=== PATIENT | male | born 1980 | race Caucasian/White ===

== ENCOUNTER 2017-09-15 18:47 | Emergency (ER) | payer SELFPAY ==
[~2017-09-15] VITALS: Ht 170.2 cm; Wt 69.0 kg
[~2017-09-15 18:47] MED LIST: HYDR25SU32 RC; OXYC-138 PO; TAMS0.4C32 PO; TRAM50TA2 PO
[2017-09-15 19:22] VITALS: BP 118/74
== END 2017-09-15 20:42 | disposition home or self-care (01) ==
LOC: ER 18:48
DX: M54.9 Dorsalgia, unspecified (principal); G89.29 Other chronic pain; Z79.899 Other long term (current) drug therapy
CPT/HCPCS: 99281

== ENCOUNTER 2018-08-15 00:54 | Emergency (ER) | payer OTHER ==
[~2018-08-15] VITALS: Ht 170.2 cm; Wt 72.7 kg
[2018-08-15 00:57] VITALS: BP 150/91
[2018-08-15] MEDS ORDERED: HYDROcodone/acetaminophen 5mg/325mg tablet PO STA (01:02)
[2018-08-15] MEDS ORDERED: TETanus/Pertussis (Acell)/Diphther VAC/PF (Tdap-Adult) 0.5ml syringe IMVAC ONE (01:15)
[2018-08-15] MEDS ORDERED: tetanus & diphtheria toxoid (Td) vaccine 0.5ml IMVAC ONE (01:15)
[2018-08-15] MEDS ORDERED: HYDR-3965 PO (02:30)
[2018-08-15] MEDS ORDERED: HYDROcodone/acetaminophen 10/325mg tab PO ONE (02:30)
[2018-08-15] MEDS ORDERED: SULF1TAB49 PO (02:30)
== END 2018-08-15 02:41 | disposition home or self-care (01) ==
LOC: ER 00:55
DX: S61.031A Puncture wound without foreign body of right thumb without damage to nail, initial encounter (principal); G89.29 Other chronic pain; Z56.0 Unemployment, unspecified; Z98.890 Other specified postprocedural states; Z79.899 Other long term (current) drug therapy; W22.8XXA Striking against or struck by other objects, initial encounter; Y93.89 Activity, other specified; Y92.89 Other specified places as the place of occurrence of the external cause; Y99.8 Other external cause status
CPT/HCPCS: 73130; 90471; 90715; 99283

== ENCOUNTER 2018-09-25 14:54 | Inpatient (IN) | payer MEDICAID, OTHER | END 2018-09-28 15:13 | disposition home or self-care (01) | LOC: ER 14:54 → SUR 3N 20:56 | DX: K35.80 Unspecified acute appendicitis (principal); K57.32 Diverticulitis of large intestine without perforation or abscess without bleeding ==

== ENCOUNTER 2019-08-02 20:24 | Emergency (ER) | payer MEDICAID, OTHER ==
[~2019-08-02] VITALS: Ht 170.2 cm; Wt 72.7 kg
[~2019-08-02 20:24] MED LIST changes: -HYDR25SU32 RC; +LACT1CAP26 PO; +NO HOME MEDS; -OXYC-138 PO; -TAMS0.4C32 PO; -TRAM50TA2 PO
[2019-08-02 20:27] VITALS: BP 130/70
[2019-08-02] MEDS ORDERED: dexamethasone 4mg tablet PO ONE (20:40)
[2019-08-02] MEDS ORDERED: albuterol 2.5 MG/3 ML nebule NEB ONE (20:40)
[2019-08-02] MEDS ORDERED: azithromycin 250mg tablet PO ONE (20:50)
[2019-08-02] MEDS ORDERED: ALBU6.7H9 INH (20:51)
[2019-08-02] MEDS ORDERED: AZIT-63 PO (20:51)
--- NOTE | 2019-08-02 20:55 | NUR ---
RT AT BEDSIDE.
== END 2019-08-02 21:03 | disposition home or self-care (01) ==
LOC: ER 20:25
DX: J40 Bronchitis, not specified as acute or chronic (principal); J18.9 Pneumonia, unspecified organism; G89.29 Other chronic pain; Z56.0 Unemployment, unspecified; Z79.899 Other long term (current) drug therapy
CPT/HCPCS: 71045; 94640; 94760; 99283

== ENCOUNTER 2020-05-02 09:36 | Emergency (ER) | payer OTHER ==
[~2020-05-02] VITALS: Ht 170.2 cm; Wt 68.2 kg
[~2020-05-02 09:36] MED LIST changes: +ALBU6.7H9 INH
[2020-05-02] MEDS ORDERED: NALO4SPR BOTHNARES (09:54)
--- NOTE | 2020-05-02 10:09 | NUR ---
Pt requesting to leave AMA. aware.
--- NOTE | 2020-05-02 10:51 | NUR ---
Pt's clothes were cut off by EMS. New sweatshirt obtained for the patient but will be given to the patient upon the arrival of the family member/friend for his ride home and safe discharge. Pt has been calm and cooperative but is anxious to leave the ED.
--- NOTE | 2020-05-02 11:01 | NUR ---
Pt continues to be anxious and wanting to leave the ED. Pt made a statement about being quick and if he wants to leave we will be unable to stop him. Security to the bedside as a standby.
[2020-05-02 11:21] VITALS: BP 132/64
== END 2020-05-02 11:13 | disposition home or self-care (01) ==
LOC: ER 09:36
DX: T50.7X1A Poisoning by analeptics and opioid receptor antagonists, accidental (unintentional), initial encounter (principal); G89.29 Other chronic pain; F12.90 Cannabis use, unspecified, uncomplicated; F15.90 Other stimulant use, unspecified, uncomplicated; F17.200 Nicotine dependence, unspecified, uncomplicated; Z98.890 Other specified postprocedural states; Z72.89 Other problems related to lifestyle; Z79.899 Other long term (current) drug therapy; Y92.89 Other specified places as the place of occurrence of the external cause
CPT/HCPCS: 93005; 99283

== ENCOUNTER 2020-08-19 01:25 | Emergency (ER) | payer MEDICAID ==
[~2020-08-19] VITALS: Ht 170.2 cm; Wt 60.0 kg
[~2020-08-19 01:25] MED LIST changes: +NALO4SPR BOTHNARES
[2020-08-19 01:26] VITALS: BP 128/85
--- NOTE | 2020-08-19 01:31 | NUR ---
Pt refuses any IV, lab draw, EKG or other treatment at this time. Pt waiting for Dr to discuss options.
[2020-08-19] MEDS ORDERED: NALO4SPR BOTHNARES (02:09)
== END 2020-08-19 02:34 | disposition left against medical advice (07) ==
LOC: ER 01:26
DX: T40.2X1A Poisoning by other opioids, accidental (unintentional), initial encounter (principal); R40.4 Transient alteration of awareness; F11.90 Opioid use, unspecified, uncomplicated; F12.90 Cannabis use, unspecified, uncomplicated; F15.90 Other stimulant use, unspecified, uncomplicated; G89.29 Other chronic pain; Z72.89 Other problems related to lifestyle; Z79.899 Other long term (current) drug therapy; Y92.89 Other specified places as the place of occurrence of the external cause
CPT/HCPCS: 99283

== ENCOUNTER 2020-12-25 14:09 | Emergency (ER) | payer MEDICAID ==
[~2020-12-25] VITALS: Ht 170.2 cm; Wt 67.4 kg
[2020-12-25] MEDS ORDERED: magnesium citrate 296ml oral solution PO ONE (19:40)
[2020-12-25] MEDS ORDERED: POLY119P2 PO (19:43)
[2020-12-25 19:55] VITALS: BP 122/75
== END 2020-12-25 19:57 | disposition home or self-care (01) ==
LOC: ER 14:09
DX: K59.00 Constipation, unspecified (principal); G89.29 Other chronic pain; F17.200 Nicotine dependence, unspecified, uncomplicated; F12.90 Cannabis use, unspecified, uncomplicated; F15.90 Other stimulant use, unspecified, uncomplicated; F11.90 Opioid use, unspecified, uncomplicated; Z98.890 Other specified postprocedural states; Z72.89 Other problems related to lifestyle; Z79.899 Other long term (current) drug therapy
CPT/HCPCS: 99282

== ENCOUNTER 2021-02-20 15:46 | Emergency (ER) | payer MEDICAID ==
[~2021-02-20] VITALS: Ht 170.2 cm; Wt 68.2 kg
[~2021-02-20 15:46] MED LIST changes: +POLY119P2 PO
[2021-02-20 16:33] VITALS: BP 124/75
== END 2021-02-20 17:00 | disposition home or self-care (01) ==
LOC: ER 15:48
DX: S01.112A Laceration without foreign body of left eyelid and periocular area, initial encounter (principal); G89.29 Other chronic pain; F12.90 Cannabis use, unspecified, uncomplicated; F15.90 Other stimulant use, unspecified, uncomplicated; F11.90 Opioid use, unspecified, uncomplicated; Z98.890 Other specified postprocedural states; Z72.89 Other problems related to lifestyle; Z79.899 Other long term (current) drug therapy; X58.XXXA Exposure to other specified factors, initial encounter; Y93.89 Activity, other specified; Y92.89 Other specified places as the place of occurrence of the external cause; Y99.8 Other external cause status
CPT/HCPCS: 99282

== ENCOUNTER 2021-08-21 23:52 | Emergency (ER) | payer MEDICAID ==
[~2021-08-21] VITALS: Ht 170.2 cm; Wt 64.0 kg
[2021-08-21 23:59] VITALS: BP 163/110
--- NOTE | 2021-08-22 00:09 | NUR ---
pt ambulated to restroom without assistance
== END 2021-08-22 00:27 | disposition home or self-care (01) ==
LOC: ER 23:53
DX: T40.411A Poisoning by fentanyl or fentanyl analogs, accidental (unintentional), initial encounter (principal); R00.0 Tachycardia, unspecified; G89.29 Other chronic pain; F12.90 Cannabis use, unspecified, uncomplicated; F15.90 Other stimulant use, unspecified, uncomplicated; F11.90 Opioid use, unspecified, uncomplicated; Z98.890 Other specified postprocedural states; Z72.89 Other problems related to lifestyle; Z79.899 Other long term (current) drug therapy; Y92.89 Other specified places as the place of occurrence of the external cause
CPT/HCPCS: 99283

== ENCOUNTER 2022-02-18 20:47 | Emergency (ER) | payer MEDICAID ==
[~2022-02-18] VITALS: Ht 170.2 cm; Wt 66.1 kg
[~2022-02-18 20:47] MED LIST changes: +ALBU6.7H14 INH; -ALBU6.7H9 INH
[2022-02-18 21:00] VITALS: BP 128/91
== END 2022-02-19 01:57 | disposition left against medical advice (07) ==
LOC: ER 20:47
DX: M79.601 Pain in right arm (principal); M79.602 Pain in left arm; Z53.21 Procedure and treatment not carried out due to patient leaving prior to being seen by health care provider; Z04.1 Encounter for examination and observation following transport accident
CPT/HCPCS: 73130

== ENCOUNTER 2022-11-15 11:54 | Emergency (ER) | payer MEDICAID ==
[~2022-11-15] VITALS: Ht 170.2 cm; Wt 65.9 kg
[2022-11-15 12:03] VITALS: BP 125/70
[2022-11-15] MEDS ORDERED: normal saline 1000ml 1,000 ML IV ONE (14:15)
[2022-11-15 15:16] LABS: CLARITY,URINE CLEAR (Clear); COLOR,URINE YELLOW (Yellow); GLUCOSE, URINE NEGATIVE (Neg); KETONES,URINE NEGATIVE (Neg); LEUKOCYTE ESTERASE ,URINE NEGATIVE (Neg); NITRITES, URINE NEGATIVE (Neg); OCCULT BLOOD,URINE NEGATIVE (Neg); PROTEIN,URINE TRACE mg/dl (Neg); UROBILINOGEN,URINE 0.2 E.U/dL (0.2-1.0)
[2022-11-15 15:17] LABS: BASOPHILS % (AUTO) 0.2 % (0-1); EOSINOPHILS # (AUTO) 0.2 X10'3 (0-0.9); EOSINOPHILS % (AUTO) 2.1 % (0-6); HEMATOCRIT 37.5 % (42.0-52.0); HEMOGLOBIN 12.9 g/dl (14.0-17.9); LYMPHOCYTES # (AUTO) 1.5 X10'3 (1.1-4.8); LYMPHOCYTES % (AUTO) 20.3 % (21-51); MEAN CORPUSCULAR HEMOGLOBIN 29.2 PG (27.0-31.0); MEAN CORPUSCULAR HGB CONC 34.3 g/dL (33.0-36.5); MEAN CORPUSCULAR VOLUME 85.1 FL (78-98); MEAN PLATELET VOLUME 8.5 FL (7.4-10.4); MONOCYTES # (AUTO) 1.6 X10'3 (0-0.9); MONOCYTES % (AUTO) 21.2 % (2-12); NEUTROPHILS # (AUTO) 4.3 X10'3 (1.8-7.7); NEUTROPHILS % (AUTO) 56.2 % (42-75); PLATELET COUNT 272 X10'3 (140-440); RED CELL DISTRIBUTION WIDTH 13.4 % (11.5-14.5); WHITE BLOOD COUNT 7.6 X10'3 (4.5-11.0)
[2022-11-15 15:17] LABS: UA COLLECTION TYPE CLN CATCH MIDSTREAM
[2022-11-15 15:22] LABS: BACTERIA,URINE FEW /HPF (Neg); MUCUS STRANDS MANY /LPF (Neg); RBC,URINE NONE SEEN /HPF (0-2); SQUAMOUS EPITHELIAL CELL,UR FEW /LPF (FEW); WBC,URINE 0-4 /HPF (0-4)
[2022-11-15 15:27] LABS: ALANINE AMINOTRANSFERASE 25 U/L (12-78); ALBUMIN 3.1 G/DL (3.4-5.0); ALBUMIN/GLOBULIN RATIO 0.9 (1.1-1.5); ALKALINE PHOSPHATASE 87 IU/L (46-116); ANION GAP 8 (8-16); ASPARTATE AMINO TRANSFERASE 14 U/L (10-37); BILIRUBIN,TOTAL 0.3 MG/DL (0.1-1.0); BLOOD UREA NITROGEN 10 MG/DL (7-18); BUN/CREATININE RATIO 8.8 (10.0-20.0); CALCIUM 8.5 MG/DL (8.5-10.1); CHLORIDE 97 MMOL/L (99-107); CREATININE 1.14 MG/DL (0.60-1.10); GLUCOSE 98 MG/DL (70-104); LIPASE < 50 U/L (73-393); POTASSIUM 3.2 MMOL/L (3.5-5.1); SODIUM 136 MMOL/L (135-145); TOTAL CARBON DIOXIDE 31.2 MMOL/L (24-32); TOTAL PROTEIN 6.6 G/DL (6.4-8.2); eGFR 70 ML/MIN
[2022-11-15] MEDS ORDERED: potassium Cl 20 mEq SR tablet PO ONE (15:35)
[2022-11-15 15:49] LABS: PLATELET ESTIMATE NORMAL; TOTAL CELLS COUNTED 100
[2022-11-15 15:51] LABS: ELLIPTOCYTES FEW; SCHISTOCYTES FEW
== END 2022-11-15 16:22 | disposition home or self-care (01) ==
LOC: ER 11:55
DX: R19.7 Diarrhea, unspecified (principal); R10.84 Generalized abdominal pain; E87.6 Hypokalemia; G89.29 Other chronic pain; F12.90 Cannabis use, unspecified, uncomplicated; F15.90 Other stimulant use, unspecified, uncomplicated; F11.90 Opioid use, unspecified, uncomplicated; Z72.89 Other problems related to lifestyle; Z79.899 Other long term (current) drug therapy
CPT/HCPCS: 36415; 80053; 81001; 83690; 85007; 85025; 96360; 99283; J7030

== ENCOUNTER 2023-01-09 00:44 | Emergency (ER) | payer MEDICAID ==
[~2023-01-09] VITALS: Ht 170.2 cm; Wt 68.2 kg
[2023-01-09 00:52] VITALS: TEMP 97.8
[2023-01-09] MEDS ORDERED: ondansetron/PF 4mg/2ml inj IV ONE (01:15)
[2023-01-09] MEDS: morphine 4 MG/ML inj SYRINge IV ONE ×2 (01:20→01:35)
[2023-01-09 01:24] LABS: BILIRUBIN,URINE NEGATIVE (Neg); CLARITY,URINE SLIGHTLY CLOUDY (Clear); COLOR,URINE YELLOW (Yellow); GLUCOSE, URINE NEGATIVE (Neg); KETONES,URINE TRACE mg/dl (Neg); LEUKOCYTE ESTERASE ,URINE NEGATIVE (Neg); NITRITES, URINE NEGATIVE (Neg); OCCULT BLOOD,URINE LARGE (Neg); PROTEIN,URINE NEGATIVE (Neg); UROBILINOGEN,URINE 0.2 E.U/dL (0.2-1.0)
[2023-01-09 01:25] LABS: BASOPHILS % (AUTO) 0.1 % (0-1); EOSINOPHILS # (AUTO) 0.1 X10'3 (0-0.9); EOSINOPHILS % (AUTO) 0.3 % (0-6); HEMATOCRIT 37.2 % (42.0-52.0); HEMOGLOBIN 12.3 g/dl (14.0-17.9); LYMPHOCYTES % (AUTO) 6.4 % (21-51); MEAN CORPUSCULAR HEMOGLOBIN 28.6 PG (27.0-31.0); MEAN CORPUSCULAR HGB CONC 33.1 g/dL (33.0-36.5); MEAN CORPUSCULAR VOLUME 86.4 FL (78-98); MEAN PLATELET VOLUME 8.6 FL (7.4-10.4); MONOCYTES # (AUTO) 1.1 X10'3 (0-0.9); MONOCYTES % (AUTO) 6.8 % (2-12); NEUTROPHILS # (AUTO) 13.4 X10'3 (1.8-7.7); NEUTROPHILS % (AUTO) 86.4 % (42-75); PLATELET COUNT 227 X10'3 (140-440); RED BLOOD COUNT 4.31 X10'6 (4.70-6.10); WHITE BLOOD COUNT 15.5 X10'3 (4.5-11.0)
[2023-01-09 01:29] LABS: ALANINE AMINOTRANSFERASE 29 U/L (12-78); ALBUMIN 3.3 G/DL (3.4-5.0); ALBUMIN/GLOBULIN RATIO 0.9 (1.1-1.5); ALKALINE PHOSPHATASE 95 IU/L (46-116); ANION GAP 8 (8-16); ASPARTATE AMINO TRANSFERASE 28 U/L (10-37); BILIRUBIN,TOTAL 0.2 MG/DL (0.1-1.0); BLOOD UREA NITROGEN 18 MG/DL (7-18); BUN/CREATININE RATIO 12.9 (10.0-20.0); CALCIUM 8.7 MG/DL (8.5-10.1); CHLORIDE 103 MMOL/L (99-107); CREATININE 1.39 MG/DL (0.60-1.10); GLUCOSE 115 MG/DL (70-104); LIPASE 55 U/L (73-393); POTASSIUM 3.9 MMOL/L (3.5-5.1); SODIUM 139 MMOL/L (135-145); TOTAL CARBON DIOXIDE 28.4 MMOL/L (24-32); TOTAL PROTEIN 6.8 G/DL (6.4-8.2); eCRCL 64 ML/MIN; eGFR 56 ML/MIN
[2023-01-09 01:35] LABS: UA COLLECTION TYPE CLN CATCH MIDSTREAM
[2023-01-09] MEDS ORDERED: morphine 4 MG/ML inj SYRINge IV ONE (01:35)
[2023-01-09 01:40] LABS: WBC,URINE 0-4 /HPF (0-4)
[2023-01-09 01:41] LABS: BACTERIA,URINE FEW /HPF (Neg); MUCUS STRANDS NONE SEEN /LPF (Neg); RBC,URINE TNTC /HPF (0-2); SQUAMOUS EPITHELIAL CELL,UR NONE SEEN /LPF (FEW)
[2023-01-09 01:42] LABS: YEAST MODERATE /HPF (NEGATIVE)
[2023-01-09 07:11] VITALS: BP 124/90; PULSE 49; O2SAT 99
[2023-01-09 07:18] VITALS: RESP 10
[2023-01-09] MEDS ORDERED: POLY17PO10 PO (07:52)
[2023-01-09] MEDS ORDERED: POLY119P2 PO (07:52)
== END 2023-01-09 08:40 | disposition home or self-care (01) ==
LOC: ER 00:45
DX: K59.00 Constipation, unspecified (principal); F17.200 Nicotine dependence, unspecified, uncomplicated; F12.90 Cannabis use, unspecified, uncomplicated; F15.90 Other stimulant use, unspecified, uncomplicated; Z79.899 Other long term (current) drug therapy
CPT/HCPCS: 36415; 74018; 80053; 81001; 83605; 83690; 84145; 85025; 87040; 87088; 96374; 96375; 99285; J2270; J2405

== ENCOUNTER 2023-01-09 20:23 | Emergency (ER) | payer MEDICAID ==
[~2023-01-09] VITALS: Ht 170.2 cm; Wt 58.4 kg
[~2023-01-09 20:23] MED LIST changes: +POLY17PO10 PO
[2023-01-09 21:04] VITALS: BP 137/86; PULSE 77; RESP 18; TEMP 99; O2SAT 100
== END 2023-01-09 21:35 | disposition home or self-care (01) ==
LOC: ER 20:24
DX: Z02.89 Encounter for other administrative examinations (principal); G89.29 Other chronic pain; F12.90 Cannabis use, unspecified, uncomplicated; F15.90 Other stimulant use, unspecified, uncomplicated; F11.90 Opioid use, unspecified, uncomplicated; Z98.890 Other specified postprocedural states; Z79.899 Other long term (current) drug therapy
CPT/HCPCS: 99281

== ENCOUNTER 2023-03-10 18:45 | Emergency (ER) | payer MEDICAID ==
[~2023-03-10] VITALS: Ht 167.6 cm; Wt 70.0 kg
[~2023-03-10 18:45] MED LIST changes: -POLY17PO10 PO
[2023-03-11] MEDS ORDERED: cephalexin 500mg capsule PO ONE (02:15)
[2023-03-11] MEDS ORDERED: CEPH-585 PO (02:17)
[2023-03-11 02:49] VITALS: BP 96/70; PULSE 52; RESP 18; TEMP 97.6; O2SAT 97
--- NOTE | 2023-03-11 03:02 | NUR ---
THIS NURSE D/C [place] ONLY.
== END 2023-03-11 03:04 | disposition home or self-care (01) ==
LOC: ER 18:46
DX: L02.436 Carbuncle of left lower limb (principal); Z98.890 Other specified postprocedural states
CPT/HCPCS: 99283

== ENCOUNTER 2024-05-29 15:13 | Emergency (ER) | payer MEDICAID ==
[~2024-05-29] VITALS: Ht 167.6 cm; Wt 63.5 kg
[2024-05-29 15:18] VITALS: BP 144/93; PULSE 87; RESP 18; TEMP 98.4; O2SAT 97
[2024-05-29] MEDS ORDERED: BISA10SU11 RC (15:30)
[2024-05-29] MEDS ORDERED: NALO4SPR22 (15:30)
[2024-05-29] MEDS ORDERED: ONDA-245 PO (15:30)
[2024-05-29] MEDS ORDERED: SENN-202 PO (15:30)
[2024-05-29] MEDS ORDERED: BUPR1FIL3 SL (15:30)
== END 2024-05-29 15:42 | disposition home or self-care (01) ==
LOC: ER 15:14
DX: K59.00 Constipation, unspecified (principal); F12.90 Cannabis use, unspecified, uncomplicated; F11.10 Opioid abuse, uncomplicated; F15.90 Other stimulant use, unspecified, uncomplicated
CPT/HCPCS: 99283

== ENCOUNTER 2024-06-10 04:38 | Emergency (ER) | payer MEDICAID ==
[~2024-06-10] VITALS: Ht 167.6 cm; Wt 68.1 kg
[~2024-06-10 04:38] MED LIST changes: +BISA10SU11 RC; +NALO4SPR22; +ONDA-245 PO; +SENN-202 PO
[2024-06-10 05:08] LABS: BASOPHILS % (AUTO) 0.3 % (0-1); EOSINOPHILS # (AUTO) 0.1 X10'3 (0-0.9); EOSINOPHILS % (AUTO) 0.7 % (0-6); HEMATOCRIT 40.2 % (42.0-52.0); HEMOGLOBIN 13.8 g/dl (14.0-17.9); LYMPHOCYTES % (AUTO) 19.8 % (21-51); MEAN CORPUSCULAR HEMOGLOBIN 29.8 PG (27.0-31.0); MEAN CORPUSCULAR HGB CONC 34.3 g/dL (33.0-36.5); MEAN CORPUSCULAR VOLUME 86.8 FL (78-98); MEAN PLATELET VOLUME 8.2 FL (7.4-10.4); MONOCYTES # (AUTO) 0.8 X10'3 (0-0.9); NEUTROPHILS # (AUTO) 7.3 X10'3 (1.8-7.7); NEUTROPHILS % (AUTO) 71.2 % (42-75); PLATELET COUNT 266 X10'3 (140-440); RED BLOOD COUNT 4.64 X10'6 (4.70-6.10); RED CELL DISTRIBUTION WIDTH 13.5 % (11.5-14.5); WHITE BLOOD COUNT 10.2 X10'3 (4.5-11.0)
[2024-06-10 05:24] LABS: ALANINE AMINOTRANSFERASE 44 U/L (12-78); ALBUMIN 4.2 G/DL (3.4-5.0); ALBUMIN/GLOBULIN RATIO 1.1 (1.1-1.5); ALKALINE PHOSPHATASE 100 IU/L (46-116); ANION GAP 9 (8-16); ASPARTATE AMINO TRANSFERASE 34 U/L (10-37); BILIRUBIN,TOTAL 0.3 MG/DL (0.1-1.0); BLOOD UREA NITROGEN 18 MG/DL (7-18); BUN/CREATININE RATIO 16.4 (10.0-20.0); CALCIUM 8.4 MG/DL (8.5-10.1); CHLORIDE 104 MMOL/L (99-107); GLUCOSE 108 MG/DL (70-104); LIPASE 17 U/L (16-77); POTASSIUM 3.9 MMOL/L (3.5-5.1); SODIUM 139 MMOL/L (135-145); TOTAL PROTEIN 7.9 G/DL (6.4-8.2); eCRCL 77 ML/MIN; eGFR 72 ML/MIN
[2024-06-10] MEDS ORDERED: iohexol 300mg/ml 100ml inj. ONE (05:26)
[2024-06-10] MEDS ORDERED: BISA-78 PO (06:22)
[2024-06-10] MEDS ORDERED: POLY119P2 PO (06:22)
[2024-06-10] MEDS: bisacodyl 5mg tablet.DR PO ONE (06:35)
[2024-06-10 06:41] VITALS: BP 124/73; PULSE 64; RESP 16; TEMP 99.3; O2SAT 99
== END 2024-06-10 06:42 | disposition home or self-care (01) ==
LOC: ER 04:39
DX: K59.00 Constipation, unspecified (principal); G89.29 Other chronic pain; M54.9 Dorsalgia, unspecified; F12.90 Cannabis use, unspecified, uncomplicated; F15.90 Other stimulant use, unspecified, uncomplicated; F11.90 Opioid use, unspecified, uncomplicated; Z79.899 Other long term (current) drug therapy
CPT/HCPCS: 36415; 74177; 80053; 83690; 85025; 99285; Q9967